=== PATIENT | male | born 1995 | race Two or more races ===

== ENCOUNTER 2019-01-07 18:49 | Emergency (ER) | payer MEDICAID, OTHER ==
[~2019-01-07] VITALS: Ht 188 cm; Wt 77.1 kg
--- NOTE | 2019-01-07 19:30 | NUR ---
ASSUMED CARE OF PT. PT WAS BIB [facility] AND [employer] WITH A C/O SI. PT IS NOT VERBALIZING A PLAN AT THIS TIME. PT STATED THAT HE WAS HUNGRY. PT APPEARS CALM AND COOPERATIVE.
[2019-01-07 19:35] LABS: BASOPHILS # (AUTO) 0.1 /CMM (0.0-0.2); BASOPHILS % (AUTO) 0.9 % (0.0-2.0); EOSINOPHILS % (AUTO) 1.4 % (0.0-6.0); HEMATOCRIT 47 % (39-51); HEMOGLOBIN 15.6 g/dL (13.5-17.5); LYMPHOCYTES # (AUTO) 3.6 /CMM (0.8-4.8); LYMPHOCYTES % (AUTO) 35.1 % (20.0-44.0); MEAN CORPUSCULAR HGB CONC 33 g/dl (31.0-36.0); MEAN CORPUSCULAR VOLUME 88 fL (80-96); MONOCYTES # (AUTO) 0.8 /CMM (0.1-1.30); MONOCYTES % (AUTO) 7.5 % (2.0-12.0); NEUTROPHILS # (AUTO) 5.6 /CMM (1.8-8.9); NEUTROPHILS % (AUTO) 55.1 % (43.0-81.0); PLATELET COUNT (AUTO) 306 /CMM (150-450); RED BLOOD CELL COUNT(AUTO) 5.33 MIL/uL (4.5-6.0); WHITE BLOOD COUNT (AUTO) 10.1 K/uL (4.3-11.0)
[2019-01-07 19:50] LABS: ALANINE AMINOTRANSFERASE 26 U/L (12-78); ALBUMIN 4.3 g/dL (3.4-5.0); ALCOHOL, BLOOD < 3 mg/dL (0-0); ALKALINE PHOSPHATASE 64 U/L (46-116); ASPARTATE AMINOTRANSFERASE 13 U/L (15-37); BILIRUBIN,DIRECT 0.1 mg/dL (0.0-0.2); BILIRUBIN,TOTAL 0.4 mg/dL (0.2-1.0); CALCIUM, SERUM 9.1 mg/dL (8.5-10.1); CARBON DIOXIDE 30 mmol/L (21-32); CHLORIDE 105 mmol/L (98-107); GLUCOSE 85 mg/dL (74-106); POTASSIUM 4.7 mmol/L (3.5-5.1); SODIUM SERUM 141 mmol/L (136-145); TOTAL PROTEIN, SERUM 7.6 g/dL (6.4-8.2); UREA NITROGEN, BLOOD 19 mg/dL (7-18)
[2019-01-07 19:52] LABS: ACETAMINOPHEN < 2 ug/ml (10-30); SALICYLATE < 2.8 mg/dL (2.8-20.0)
--- NOTE | 2019-01-07 19:55 | NUR ---
URINE SAMPLE SENT TO LAB.
[2019-01-07 20:02] LABS: APPEARANCE,URINE Clear (CLEAR); BILIRUBIN,URINE Negative (NEGATIVE); BLOOD, URINE Negative Ery/uL (NEGATIVE); COLOR,URINE Yellow (YELLOW); KETONES,URINE Negative (NEGATIVE); LEUKOCYTE ESTERASE ,URINE Negative (NEGATIVE); NITRITE, URINE Negative (NEGATIVE); PH,URINE 6.5 (5.0-8.0); PROTEIN,URINE Negative (NEGATIVE); UGLUCOSE Negative (NEGATIVE); UROBILINOGEN,URINE 0.2 EU/dL (0.2)
--- NOTE | 2019-01-07 20:06 | NUR ---
PT REC'D A SANDWICH, YOGURT, JELLO, AND JUICE.
--- NOTE | 2019-01-07 20:15 | NUR ---
REPORT GIVEN TO BERNABE RYAN FOR NARCISO.
[2019-01-07] MEDS ORDERED: hydrOXYzine 10 MG TABLET PO STA (20:58)
[2019-01-07] MEDS ORDERED: hydrOXYzine 10 MG TABLET ONE (21:08)
[2019-01-07 21:40] VITALS: BP 110/76
== END 2019-01-07 21:41 | disposition home or self-care (01) ==
LOC: ER 18:51
DX: R45.851 Suicidal ideations (principal); F41.9 Anxiety disorder, unspecified; F90.9 Attention-deficit hyperactivity disorder, unspecified type
CPT/HCPCS: 36415; 80048; 80076; 80305; 80307; 80329; 81001; 85025; 99284; A4606; G0480; Q0177; 81000-TC

== ENCOUNTER 2023-03-23 20:23 | Emergency (ER) | payer OTHER ==
[~2023-03-23] VITALS: Ht 182.9 cm; Wt 72.6 kg
--- NOTE | 2023-03-23 21:05 | NUR ---
PT CALLED TO TRIAGE NO ANSWER
[2023-03-23 21:53] VITALS: BP 131/79
[2023-03-23] MEDS ORDERED: AMOX-430 PO (22:08)
[2023-03-23] MEDS ORDERED: IBUPROFEN 400 MG TABLET ONE (22:12)
[2023-03-23] MEDS ORDERED: AMOX/CLAVULANATE 875 MG TABLET ONE (22:12)
[2023-03-23] MEDS ORDERED: IBUPROFEN 400 MG TABLET PO ONE (22:30)
[2023-03-23] MEDS ORDERED: AMOX/CLAVULANATE 875 MG TABLET PO ONE (22:30)
== END 2023-03-23 22:24 | disposition home or self-care (01) ==
LOC: ER 20:34
DX: K08.89 Other specified disorders of teeth and supporting structures (principal); F32.A Depression, unspecified; F41.9 Anxiety disorder, unspecified; F17.200 Nicotine dependence, unspecified, uncomplicated; Z60.2 Problems related to living alone

== ENCOUNTER 2023-03-26 15:59 | Emergency (ER) | payer OTHER ==
[~2023-03-26] VITALS: Ht 182.9 cm; Wt 72.6 kg
[~2023-03-26 15:59] MED LIST: AMOX-430 PO
[2023-03-26] MEDS ORDERED: IV NS 0.9% 1,000 ML BAG IV ONE ×2 (17:00→19:30)
[2023-03-26] MEDS ORDERED: CEFTRIAXONE 1GM BAG (ER ONLY) 50 ML IV ONE ×2 (17:00→18:44)
[2023-03-26] MEDS ORDERED: VANCOMYCIN 1 GM in IV D5W 250 ML IV ONE (17:00)
[2023-03-26] MEDS ORDERED: KETOROLAC TROMETHAMINE INJ 30 MG/ML VIAL IV ONE (17:30)
--- NOTE | 2023-03-26 18:25 | NUR ---
PT IN BED 6, BREATHING IS EVEN AND UNLABORED. A/OX 4. LEFT CHEEK ABSCESS WORSE THAN WHEN HE WAS SEEN HERE 2 DAYS AGO. NKA. Hx OF IV DRUG USE.
--- NOTE | 2023-03-26 18:30 | NUR ---
BLOOD AND CULTURES DRAWN.
[2023-03-26] MEDS ORDERED: IOHEXOL-300 100 ML VIAL IV ONE (18:39)
[2023-03-26] MEDS ORDERED: CT SWABBABLE VALVE TRANS SET 1 EA INFUS.SET MC ONE (18:39)
[2023-03-26] MEDS ORDERED: IV NS 0.9% 250 ML IV ONE (18:39)
[2023-03-26] MEDS ORDERED: VANCOMYCIN 1 GM /D5W 250 ML PB IV ONE (18:44)
[2023-03-26] MEDS ORDERED: KETOROLAC TROMETHAMINE INJ 30 MG/ML VIAL ONE (18:44)
[2023-03-26 18:50] LABS: BASOPHILS # (AUTO) 0.1 K/uL (0.0-0.2); BASOPHILS % (AUTO) 0.4 % (0.0-2.0); EOSINOPHILS % (AUTO) 0.9 % (0.0-6.0); HEMATOCRIT 37 % (39-51); LYMPHOCYTES # (AUTO) 2.2 K/uL (0.8-4.8); MEAN CORPUSCULAR HGB CONC 32 g/dl (31.0-36.0); MEAN CORPUSCULAR VOLUME 86 fL (80-96); MONOCYTES # (AUTO) 0.9 K/uL (0.1-1.30); MONOCYTES % (AUTO) 6.6 % (2.0-12.0); NEUTROPHILS # (AUTO) 9.9 K/uL (1.8-8.9); NEUTROPHILS % (AUTO) 75.1 % (43.0-81.0); PLATELET COUNT (AUTO) 330 K/uL (150-450); RED BLOOD CELL COUNT(AUTO) 4.33 MIL/uL (4.5-6.0); WHITE BLOOD COUNT (AUTO) 13.2 K/uL (4.3-11.0)
[2023-03-26 18:58] LABS: CALCIUM, SERUM 9.2 mg/dL (8.5-10.1); POTASSIUM 4.5 mmol/L (3.5-5.1)
--- NOTE | 2023-03-26 18:58 | NUR ---
PT TAKEN TO CT.
[2023-03-26 19:04] LABS: ALBUMIN 3.8 g/dL (3.4-5.0); BILIRUBIN,DIRECT 0.2 mg/dL (0.0-0.2); BILIRUBIN,TOTAL 0.6 mg/dL (0.2-1.0)
--- NOTE | 2023-03-26 19:47 | NUR ---
DOMINIQUE ANGULO ON PHONE CALL WITH DR ESTEVEZ FROM [facility] [phone]
--- NOTE | 2023-03-26 19:52 | NUR ---
PENDING CTA FACIAL RESULTS & TO BE REPORTED TO DR ESTEVEZ
--- NOTE | 2023-03-26 20:40 | NUR ---
DOMINIQUE ON PHONE CALL WITH DR ESTEVEZ. REPORTED CTA RESULTS. AWAITING CALL BACK FROM DR ESTEVEZ IF ACCEPTING PT.
--- NOTE | 2023-03-26 23:48 | NUR ---
PT WAS URGED TO STAY SEVERAL TIMES AND PERSITED THAT HE WANTED TO LEAVE. HE DID NOT WANT TO WAIT FOR TRANSPORTATION AND WAS TOLD THAT IF HE DID NOT STAY IT COULD RESULT IN SEPSIS OR . THE PT UNDERSTOOD THIS AND STILL WANTED TO LEAVE. THE MD SPOKE TO THE PT AND THE PT STILL WISHED TO LEAVE. PT SIGNED THE AMA FORM AND THE IV LINE WAS D/C'ED.
[2023-03-26 23:50] VITALS: BP 102/64
== END 2023-03-26 23:51 | disposition left against medical advice (07) ==
LOC: ER 16:00
DX: L03.211 Cellulitis of face (principal); L02.01 Cutaneous abscess of face; K13.79 Other lesions of oral mucosa; F41.9 Anxiety disorder, unspecified; F32.A Depression, unspecified; F17.200 Nicotine dependence, unspecified, uncomplicated; Z60.2 Problems related to living alone; Z79.899 Other long term (current) drug therapy; Z20.822 Contact with and (suspected) exposure to COVID-19
CPT/HCPCS: 99285; 96365; 70487; 71045; 96361; 96375; 87426; 96368; 93005; 84145; 85025; 80048; 87040 ×2; 83605; 80076; 36415; 84484; 85730; J1885; J3370 ×2; J7030; J7050; A4223; J0696; Q9967; C9803; J7060

== ENCOUNTER 2023-10-18 10:07 | Emergency (ER) | payer OTHER ==
[~2023-10-18] VITALS: Ht 188 cm; Wt 62.6 kg
[2023-10-18] MEDS ORDERED: VANCOMYCIN 1 GM in IV D5W 250 ML IV ONE (11:00)
[2023-10-18] MEDS ORDERED: IV NS 0.9% 1,000 ML BAG IV ONE (11:00)
[2023-10-18] MEDS ORDERED: PIPERACILLIN /TAZOBACTAM 3.375 G in IV D5W 50 ML IV ONE (11:00)
[2023-10-18] MEDS ORDERED: IOHEXOL-300 100 ML VIAL IV ONE (11:02)
[2023-10-18 11:17] LABS: BASOPHILS % (AUTO) 0.5 % (0.0-2.0); EOSINOPHILS # (AUTO) 0.1 K/uL (0.0-0.7); EOSINOPHILS % (AUTO) 0.8 % (0.0-6.0); HEMATOCRIT 36 % (39-51); LYMPHOCYTES # (AUTO) 1.2 K/uL (0.8-4.8); LYMPHOCYTES % (AUTO) 12.8 % (20.0-44.0); MEAN CORPUSCULAR HEMOGLOBIN 28 PG (26.0-33.0); MEAN CORPUSCULAR HGB CONC 33 g/dl (31.0-36.0); MEAN CORPUSCULAR VOLUME 85 fL (80-96); MONOCYTES # (AUTO) 0.6 K/uL (0.1-1.30); MONOCYTES % (AUTO) 6.7 % (2.0-12.0); NEUTROPHILS # (AUTO) 7.7 K/uL (1.8-8.9); NEUTROPHILS % (AUTO) 79.2 % (43.0-81.0); PLATELET COUNT (AUTO) 274 K/uL (150-450); RED CELL DISTRIBUTION WIDTH 14.1 % (11.5-15.0); WHITE BLOOD COUNT (AUTO) 9.7 K/uL (4.3-11.0)
[2023-10-18 11:29] LABS: ALBUMIN 4.1 g/dL (3.4-5.0); BILIRUBIN,DIRECT 0.1 mg/dL (0.0-0.2); BILIRUBIN,TOTAL 0.6 mg/dL (0.2-1.0); CALCIUM, SERUM 8.7 mg/dL (8.5-10.1); CREATININE 0.7 mg/dL (0.6-1.3); POTASSIUM 3.5 mmol/L (3.5-5.1); TOTAL PROTEIN, SERUM 8.4 g/dL (6.4-8.2)
[2023-10-18 11:30] LABS: INR 0.97 (0.91-1.10); PARTIAL THROMBOPLASTIN TIME 29.2 SEC (24.3-34.3); PROTHROMBIN TIME 10.3 SECS (9.2-11.1)
[2023-10-18 11:32] LABS: LACTIC ACID 0.6 mmol/L (0.4-2.0)
[2023-10-18] MEDS ORDERED: SULF1TAB48 PO (12:42)
[2023-10-18] MEDS ORDERED: CEPH500C2 PO (12:42)
[2023-10-18] MEDS ORDERED: IBUP-1953 PO (12:42)
[2023-10-18 14:04] VITALS: BP 141/87; TEMP 98.7; O2SAT 100
== END 2023-10-18 14:04 | disposition home or self-care (01) ==
LOC: ER 10:14
DX: H00.034 Abscess of left upper eyelid (principal); F17.200 Nicotine dependence, unspecified, uncomplicated; Z79.899 Other long term (current) drug therapy
CPT/HCPCS: 99285; 96365; 70487; 96366; 96368; 85025; 80048; 87040 ×2; 83605; 80076; 36415; 85730; J3370; J2543; J7060; J7030; A4223; Q9967